=== PATIENT | male | born 1985 | race Caucasian/White ===

== ENCOUNTER 2020-05-21 09:09 | Emergency (ER) | payer OTHER ==
[~2020-05-21] VITALS: Ht 167.6 cm; Wt 84.1 kg
[2020-05-21 09:20] VITALS: BP 128/77
== END 2020-05-21 10:26 | disposition home or self-care (01) ==
LOC: EMS 09:10
DX: Z03.818 Encounter for observation for suspected exposure to other biological agents ruled out (principal)
CPT/HCPCS: 99283; U0003